=== PATIENT | female | born 1945 | race Caucasian/White ===

== ENCOUNTER → 2018-07-22 | Outpatient (CLI) | payer MEDICARE, OTHER ==
[~2018-07-22] MED LIST: AMIT25TA9 PO; HYDR25TA4 PO; LVT.05T PO; OXB5T PO; PREG150C PO; TELM1TAB3 PO
--- NOTE | 2018-07-22 15:42 | Diagnostic Imaging Report ---
PROCEDURE: US Thyroid. TECHNIQUE: Multiple real-time grayscale images were obtained of the thyroid in various projections. INDICATION: Thyroid nodules and possible goiter. No prior studies available for comparison. Right lobe of the thyroid measures 3.9 x 1.5 x 1.4 cm and the left lobe measures 3.4 x 1.4 x 1.0 cm. There is a circumscribed nodule lower pole right lobe of the thyroid measuring 7 mm x 4 mm. No microcalcifications are seen. No other thyroid nodules are detected. IMPRESSION: Subcentimeter right lobe thyroid nodule. The study is otherwise unremarkable. Dictated by: Dictated on workstation # [id number]
== END ==
LOC: RAD 14:00
PROVIDERS: ATTEND Otolaryngology Otolaryngology/Facial Plastic Surgery
DX: E04.1 Nontoxic single thyroid nodule (principal)
CPT/HCPCS: 76536

== ENCOUNTER → 2018-08-08 | Outpatient (CLI) | payer MEDICARE, OTHER ==
--- NOTE | 2018-08-08 17:12 | Diagnostic Imaging Report ---
PROCEDURE: US carotid duplex, bilateral. TECHNIQUE: Multiple real-time grayscale images were obtained over the carotid arteries in various projections, bilaterally. Additional duplex Doppler and color Doppler images were also obtained. DATE: August 08, 2018. INDICATION: 72-year-old female, left ophthalmic artery emboli. COMPARISON: January 06, 2008. FINDINGS: Peak systolic velocity in the left mid common carotid artery measures 116 cm/s. Peak systolic velocity in the left external carotid artery measures 220 cm/s. Peak systolic velocity in left proximal internal carotid artery measures 107 cm/s, 110 cm/s in the mid left internal carotid artery, and 123 cm/s distally. There is patent antegrade flow in the left vertebral artery. Peak systolic velocity in the right mid common carotid artery measures 138 cm/s. Peak systolic velocity in the right external carotid artery measures 149 cm/s. Peak systolic velocity in the right proximal internal carotid artery measures 86 cm/s, 107 cm/s in the mid right internal carotid artery, and 97 cm/s distally. There is patent antegrade flow in the right vertebral artery. IMPRESSION: 1. Negative for hemodynamically significant right or left internal carotid artery stenosis. 2. Patent antegrade flow in the bilateral vertebral arteries. Parameters based on the consensus panel Giordano-Scale and Doppler ultrasound criteria published September 2003, Radiology, Volume 229. DOPPLER (peak systolic velocity M/S Right Left CCA 1.38 1.16 ICA Proximal .85 1.07 ICA Mid 1.07 1.10 ICA Distal .96 1.23 RATIO .8 1.1 ECA 1.49 2.20 VERT .85 .95 Dictated by: Dictated on workstation # [id number]
== END ==
LOC: RAD 15:45
PROVIDERS: ATTEND Internal Medicine
DX: H34.9 Unspecified retinal vascular occlusion (principal)
CPT/HCPCS: 93880

== ENCOUNTER → 2018-10-23 | Outpatient (CLI) | payer MEDICARE, OTHER ==
--- NOTE | 2018-10-23 11:49 | Diagnostic Imaging Report ---
INDICATION: COUGH. COMPARISON: 12/22/2013. FINDINGS: Frontal and lateral views of the chest demonstrate normal heart size and pulmonary vascularity. The lungs are clear. There are no signs of infiltrate, pleural effusions or pneumothoraces. The visualized osseous structures show no acute abnormalities. IMPRESSION: 1. No acute process. No signs of infiltrates, effusions or pneumothoraces. Dictated by: Dictated on workstation # [id number]
== END ==
LOC: RAD 10:37
PROVIDERS: ATTEND Internal Medicine
DX: R05 Cough (principal)
CPT/HCPCS: 71046

== ENCOUNTER → 2019-07-21 | Outpatient (CLI) | payer MEDICARE, OTHER ==
--- NOTE | 2019-07-21 13:26 | Diagnostic Imaging Report ---
PROCEDURE: US Thyroid. TECHNIQUE: Multiple real-time grayscale images were obtained of the thyroid in various projections. INDICATION: Right thyroid nodule, followup. COMPARISON: Correlation is made with prior exam from 07/22/2018. FINDINGS: Right lobe of the thyroid measures 4.0 x 1.5 x 1.7 cm and the left lobe measures 3.6 x 1.5 x 1.0 cm. Isthmus is 3 mm in thickness. Hypoechoic nodule in the lower pole of the right lobe measures 9 mm x 6 mm x 5 mm compared with 7 mm x 4 mm x 7 mm on prior. Slight differences in measurements appear to be owing to slight differences in measurement technique. No microcalcifications are seen. No new masses are identified. IMPRESSION: Overall stable subcentimeter right lobe thyroid nodule when compared with examination one year earlier. Dictated by: Dictated on workstation # [id number]
== END ==
LOC: RAD 12:30
PROVIDERS: ATTEND Otolaryngology Otolaryngology/Facial Plastic Surgery
DX: E04.2 Nontoxic multinodular goiter (principal)
CPT/HCPCS: 76536

== ENCOUNTER → 2020-08-19 | Outpatient (CLI) | payer MEDICARE, OTHER ==
--- NOTE | 2020-08-19 11:08 | Diagnostic Imaging Report ---
PROCEDURE: US Thyroid. TECHNIQUE: Multiple real-time grayscale images were obtained of the thyroid in various projections. INDICATION: Thyroid nodule Prior thyroid ultrasound exam of 07/21/2019 noted a 9 x 6 x 5 mm hypoechoic nodule in the inferior pole of the right lobe of the thyroid. That finding is again evident in this study and now measures 10 x 4 x 4 mm. I would classify this as a TI-RADS 3 nodule. The overall appearance of the thyroid gland has not changed significantly otherwise. No new abnormality has developed. The thyroid gland is not enlarged with the right lobe measuring 4.1 x 1.6 x 1.4 cm, the left lobe estimated to be 4.6 x 1.5 x 1.1 cm (normal size 4-5 x 2 x 2 7 mm). IMPRESSION: 1. The small isoechoic nodule in the right lobe of thyroid seen previously is again evident and essentially no different. Most likely this is a benign process. 2. The overall appearance of the thyroid gland is otherwise stable. Dictated by: Dictated on workstation # [id number]
== END ==
LOC: RAD 10:00
PROVIDERS: ATTEND Otolaryngology Otolaryngology/Facial Plastic Surgery
DX: E04.1 Nontoxic single thyroid nodule (principal)
CPT/HCPCS: 76536

== ENCOUNTER → 2022-03-20 | Outpatient (CLI) | payer MEDICARE, OTHER ==
--- NOTE | 2022-03-20 12:33 | Diagnostic Imaging Report ---
PROCEDURE: US Thyroid. TECHNIQUE: Multiple real-time grayscale images were obtained of the thyroid in various projections. INDICATION: Follow-up right thyroid nodule. Correlation is made with prior ultrasound from 08/19/2020. Right lobe thyroid measures 4.2 x 1.6 x 1.6 cm, left lobe measures 3.8 x 1.6 x 1.0 cm. Isthmus is 2 mm in thickness. Both lobes are fairly homogeneous in echotexture. Hypoechoic nodule right lobe of thyroid measures 5 mm x 4 mm x 4 mm. This appears similar to prior exam. Prior measurement was 10 mm x 4 mm x 4 mm however there appears to be a difference in measurement technique. No new thyroid nodules are detected. IMPRESSION: Stable right lobe thyroid nodule when compared with prior examination from 08/19/2020. Dictated by: Dictated on workstation # [id number]
== END ==
LOC: RAD 10:09
PROVIDERS: ATTEND Otolaryngology Otolaryngology/Facial Plastic Surgery
DX: E04.1 Nontoxic single thyroid nodule (principal)
CPT/HCPCS: 76536

== ENCOUNTER 2022-05-29 13:12 | Outpatient (RCR) | payer MEDICARE, OTHER | END 2022-06-03 | disposition home or self-care (01) | LOC: CR3 13:12 | PROVIDERS: ATTEND Internal Medicine | DX: Z29.8 Encounter for other specified prophylactic measures (principal) ==

== ENCOUNTER 2022-06-08 08:47 | Outpatient (CLI) | payer MEDICARE, OTHER ==
[2022-06-08 09:05] VITALS: BP 149/77
[2022-06-08] MEDS ORDERED: EPINEPHrine INJECTION 1 MG/ML AMP IM PRN (09:15)
[2022-06-08] MEDS ORDERED: diphenhydrAMINE 50 MG/ML INJ (BENADRYL) IV PRN (09:15)
[2022-06-08] MEDS ORDERED: ONDANSETRON 4 MG/2 ML (SDV) Z0FRAN IV PRN (09:15)
[2022-06-08] MEDS ORDERED: ACETAMINOPHEN 500 MG TAB (TYLENOL) PO PRN (09:15)
[2022-06-08] MEDS ORDERED: BEBTELOVIMAB 175 MG/2 ML VIAL IV ONE (09:15)
== END 2022-06-08 09:31 | disposition home or self-care (01) ==
LOC: INFUSION 08:47
PROVIDERS: ATTEND Nurse Practitioner Family
DX: U07.1 COVID-19 (principal)

== ENCOUNTER 2022-06-11 14:35 | Inpatient (IN) | payer MEDICARE, OTHER ==
[~2022-06-11] VITALS: Ht 165 cm; Wt 90.7 kg
--- NOTE | 2022-06-11 15:02 | ED Cough/URI ---
General Chief Complaint: COVID19 Suspect/Confirmed Stated Complaint: WEAKNESS Nursing Triage Note: PT PRESENTS TO ED VIA EMS FROM HOME WITH COMPLAINTS OF FATIGUE AND GENERALIZED WEAKNESS WORSE SINCE YESTERDAY EVENING. PT STATES SHE WAS DIAGNOSED WITH COVID ON 06/03. PT DENIES CP, COUGH, OR SOA. Source: patient Exam Limitations: no limitations History of Present Illness Date Seen by Provider: Jun 11, 2022 Time Seen by Provider: 14:59 Initial Comments Patient is a 76-year-old female who presents the ED for generalized weakness and fatigue. Was diagnosed with COVID on May 28. She took paxlovid for 5 days and was placed on antibiotic and finished a few days ago. She had flulike symptoms with a cough. Coughing has improved. She states she has continuously felt weak. Was in the shower today setting when she "passed out" while sitting. Her took her to the bed and called EMS. She states she feels dehydrated. She reports dry mouth. Checked her throat a few days ago noted pus pockets. Denies of any current chest pain, abdominal pain, headache, visual changes. Denies history of coronary artery disease, COPD or asthma. Allergies and Home Medications Allergies Coded Allergies: No Known Drug Allergies (Unverified , 12/26/13) Patient Home Medication List Home Medication List Reviewed: Yes Amitriptyline Hcl (Amitriptyline Hcl) 25 Mg Tablet, 1 EACH PO HS, (Reported) Entered as Reported by: ALLYSON AGUIRRE on 12/26/13901 Hctz/Telmisartan (Micardis Hct 80-12.5 Mg Tablet) 1 Each Tablet, 1 EACH PO DAILY, (Reported) Entered as Reported by: ALLYSON AGUIRRE on 12/26/13901 Hydrochlorothiazide (Hydrochlorothiazide) 25 Mg Tablet, 25 MG PO DAILY, (Reported) Entered as Reported by: ALLYSON AGUIRRE on 12/26/13901 Levothyroxine Sodium (Levothyroxine 50 Mcg Tab) 50 Mcg Tablet, 1 EACH PO DAILY, (Reported) Entered as Reported by: ALLYSON AGUIRRE on 12/26/13901 Oxybutynin Chloride (Ditropan) 5 Mg Tab, 10 MG PO DAILY, (Reported) Entered as Reported by: ALLYSON AGUIRRE on 12/26/13901 Pregabalin (Lyrica) 150 Mg Capsule, 150 MG PO BID, (Reported) Entered as Reported by: ALLYSON AGUIRRE on 12/26/13 0902 Review of Systems Review of Systems Constitutional: No chills, No diaphoresis; malaise, weakness EENTM: No blurred vision, No double vision Respiratory: No cough, No short of breath Cardiovascular: No chest pain Gastrointestinal: No abdominal pain, No diarrhea, No nausea, No vomiting Genitourinary: No decreased output, No discharge Musculoskeletal: No back pain, No joint pain Skin: No change in color, No change in hair/nails All Other Systems Reviewed Negative Unless Noted: Yes Past Ubjgmao-Gwpett-Zwfiqg Hx Patient Social History Tobacco Use?: No Substance use?: No Alcohol Use?: Yes Alcohol Frequency: Once in a while Pt feels they are or have been: No Immunizations Up To Date First/Initial COVID19 Vaccinat: yes Second COVID19 Vaccination Sohail: yes COVID19 Vaccine Systems Software Specialist: moderna Past Medical History Surgery/Hospitalization HX: pmh: htn, osteo arthritis, fibro, high chol. Physical Exam Vital Signs - First Documented 06/11/22 14:35 Temp 36.9 Pulse 85 Resp 20 B/P (MAP) 150/64 (92) Pulse Ox 94 Capillary Refill : Less Than 3 Seconds Height: 5'4.00" Weight: 205lbs. oz. 92.169174mm; 33.00 BMI Method: General Appearance: WD/WN Eyes: Bilateral Eye Normal Inspection, Bilateral Eye PERRL, Bilateral Eye EOMI HEENT: PERRL/EOMI, normal ENT inspection, TMs normal, pharynx normal, other (Dry mouth) Neck: non-tender, full range of motion, supple Respiratory: chest non-tender, lungs clear, normal breath sounds, no respiratory distress Cardiovascular: regular rate, rhythm, no edema, no gallop, no JVD Gastrointestinal: normal bowel sounds, non tender, soft, no organomegaly Extremities: normal range of motion, non-tender, normal inspection Neurologic/Psychiatric: child care center assistant director II-XII nml as tested, no motor/sensory deficits, alert, oriented x 3 Skin: normal color, warm/dry Progress/Results/Core Measures Suspected Sepsis SIRS Temperature: Pulse: 85 Respiratory Rate: 20 Laboratory Tests 06/11/22 14:43: White Blood Count 21.5H Blood Pressure 150 /64 Mean: 92 Laboratory Tests 06/11/22 14:43: Creatinine 0.96, INR Comment 0.9, Platelet Count 418H, Total Bilirubin 0.7 Results/Orders Lab Results Laboratory Tests Test 06/11/22 14:43 06/11/22 16:34 Range/Units White Blood Count 21.5 H 4.3-11.0 10^3/uL Red Blood Count 4.65 3.80-5.11 10^6/uL Hemoglobin 13.4 11.5-16.0 g/dL Hematocrit 39 35-52 % Mean Corpuscular Volume 83 80-99 fL Mean Corpuscular Hemoglobin 29 25-34 pg Mean Corpuscular Hemoglobin Concent 35 32-36 g/dL Red Cell Distribution Width 13.5 10.0-14.5 % Platelet Count 418 H 130-400 10^3/uL Mean Platelet Volume 9.3 9.0-12.2 fL Immature Granulocyte % (Auto) 2 % Neutrophils (%) (Auto) 75 42-75 % Lymphocytes (%) (Auto) 16 12-44 % Monocytes (%) (Auto) 7 0-12 % Eosinophils (%) (Auto) 1 0-10 % Basophils (%) (Auto) 0 0-10 % Neutrophils # (Auto) 16.0 H 1.8-7.8 X 10^3 Lymphocytes # (Auto) 3.4 1.0-4.0 X 10^3 Monocytes # (Auto) 1.5 H 0.0-1.0 X 10^3 Eosinophils # (Auto) 0.1 0.0-0.3 10^3/uL Basophils # (Auto) 0.0 0.0-0.1 10^3/uL Immature Granulocyte # (Auto) 0.5 H 0.0-0.1 10^3/uL Neutrophils % (Manual) 75 % Lymphocytes % (Manual) 16 % Monocytes % (Manual) 6 % Eosinophils % (Manual) 1 % Blood Morphology Comment NORMAL Prothrombin Time 13.0 12.2-14.7 SEC INR Comment 0.9 0.8-1.4 Activated Partial Thromboplast Time 23 L 24-35 SEC Sodium Level 124 *L 135-145 MMOL/L Potassium Level 2.9 L 3.6-5.0 MMOL/L Chloride Level 85 L 98-107 MMOL/L Carbon Dioxide Level 26 21-32 MMOL/L Anion Gap 13 5-14 MMOL/L Blood Urea Nitrogen 20 H 7-18 MG/DL Creatinine 0.96 0.60-1.30 MG/DL Estimat Glomerular Filtration Rate 61 BUN/Creatinine Ratio 21 Glucose Level 119 H 70-105 MG/DL Calcium Level 8.5 8.5-10.1 MG/DL Corrected Calcium 8.7 8.5-10.1 MG/DL Magnesium Level 2.2 1.6-2.4 MG/DL Total Bilirubin 0.7 0.1-1.0 MG/DL Aspartate Amino Transf (AST/SGOT) 35 H 5-34 U/L Alanine Aminotransferase (ALT/SGPT) 88 H 0-55 U/L Alkaline Phosphatase 48 40-136 U/L Troponin I < 0.028 <0.028 NG/ML C-Reactive Protein High Sensitivity 2.05 H 0.00-0.50 MG/DL Total Protein 5.8 L 6.4-8.2 GM/DL Albumin 3.8 3.2-4.5 GM/DL Lipase 76 8-78 U/L Urine Color YELLOW Urine Clarity SL CLOUDY Urine pH 7.0 5-9 Urine Specific [place] <=1.005 1.016-1.022 Urine Protein NEGATIVE NEGATIVE Urine Glucose (UA) NEGATIVE NEGATIVE Urine Ketones NEGATIVE NEGATIVE Urine Nitrite NEGATIVE NEGATIVE Urine Bilirubin NEGATIVE NEGATIVE Urine Urobilinogen 0.2 < = 1.0 MG/DL Urine Leukocyte Esterase TRACE H NEGATIVE Urine RBC (Auto) NEGATIVE NEGATIVE Urine RBC NONE /HPF Urine WBC 0-2 /HPF Urine Squamous Epithelial Cells 2-5 /HPF Urine Crystals NONE /LPF Urine Bacteria TRACE /HPF Urine Casts NONE /LPF Urine Mucus NEGATIVE /LPF Urine Culture Indicated NO My Orders Orders - CARLOS HEWITT A PA Cbc With Automated Diff (06/11/22 15:03) Comprehensive Metabolic Panel (06/11/22 15:03) Lipase (06/11/22 15:03) Troponin I [place] (06/11/22 15:03) Chest 1 View, Ap/Pa Only (06/11/22 15:03) Ct Head Wo (06/11/22 15:03) Magnesium (06/11/22 15:03) Partial Thromboplastin Time (06/11/22 15:03) Protime With Inr (06/11/22 15:03) Hs C Reactive Protein (06/11/22 15:03) Urinalysis (06/11/22 15:03) Manual Differential (06/11/22 14:43) Ekg Tracing (06/11/22 16:50) Ed Admission (Communication) (06/11/22 17:12) Vital Signs/I&O 06/11/22 14:35 Temp 36.9 Pulse 85 Resp 20 B/P (MAP) 150/64 (92) Pulse Ox 94 Capillary Refill : Less Than 3 Seconds Blood Pressure Mean: 92 Departure Communication (PCP) Patient diagnosed with COVID on the . She finished paxlovid and antibiotic. She initially had body aches fatigue weakness with cough. Cough has improved. She has had increased weakness over the past few days. Lives at home with . Attempted to get her in the shower put her on a chair when she had a syncopal episode. She believes she lost consciousness. She is on a blood thinners. CT scan of the head unremarkable. On arrival neuro exam unremarkable. No focal neural deficits. EKG showed normal sinus rhythm. Cardiac work-up unremarkable. Chest ray was negative for pneumonia. Patient lab work showed hyponatremia, hypochloremia and hypokalemia. She was given a liter of fluid by EMS. No acute kidney injury. Elevated liver enzymes. White blood count of 21,000. She has no abdominal tenderness. Denies any cough. Urinalysis without evidence of infection. Patient elevated white blood count likely secondary to dehydration. She is unclear if she has been taking steroids. No source of infection however she just recently was diagnosed with COVID. She has past the isolation period. Patient states she is not strong enough to get up and walk. She has been able to ambulate only for short duration. Has been having difficulty taking care of patient over the past few days especially today. Patient will be admitted for IV fluids, PT OT. Discussed patient with Dr. Shahid who accepts patient. Impression Primary Impression: Dehydration Disposition: ADMITTED INPATIENT Condition: Stable Admissions Decision to Admit Reason: Admit from ER (General) Decision to Admit/Date: Jun 11, 2022 Time/Decision to Admit Time: 17:12 Departure-Patient Inst. Referrals: SHARYN CHAIDEZ MD (PCP/Family) Primary Care Physician CARLOS HEWITT Jun 11, 2022 15:02
[2022-06-11 15:14] LABS: INR 0.9 (0.8-1.4)
[2022-06-11 15:18] LABS: ALBUMIN 3.8 GM/DL (3.2-4.5); CHLORIDE 85 MMOL/L (98-107); POTASSIUM 2.9 MMOL/L (3.6-5.0)
[2022-06-11 15:19] LABS: CALCIUM 8.5 MG/DL (8.5-10.1)
[2022-06-11 15:20] LABS: GLUCOSE 119 MG/DL (70-105); TOTAL PROTEIN 5.8 GM/DL (6.4-8.2)
[2022-06-11 15:21] LABS: CARBON DIOXIDE 26 MMOL/L (21-32)
[2022-06-11 15:22] LABS: BILIRUBIN,TOTAL 0.7 MG/DL (0.1-1.0)
[2022-06-11 15:24] LABS: ALKALINE PHOSPHATASE 48 U/L (40-136); CREATININE SERUM 0.96 MG/DL (0.60-1.30); GFR ESTIMATED 61
[2022-06-11 15:25] LABS: BASOPHILS % (AUTO) 0 % (0-10); BUN/CREATININE RATIO 21; EOSINOPHILS # (AUTO) 0.1 10^3/uL (0.0-0.3); EOSINOPHILS % (AUTO) 1 % (0-10); HEMATOCRIT 39 % (35-52); HEMOGLOBIN 13.4 g/dL (11.5-16.0); LYMPHOCYTES # (AUTO) 3.4 X 10^3 (1.0-4.0); LYMPHOCYTES % (AUTO) 16 % (12-44); MEAN CORPUSCULAR HEMOGLOBIN 29 pg (25-34); MEAN CORPUSCULAR HGB CONC 35 g/dL (32-36); MEAN CORPUSCULAR VOLUME 83 fL (80-99); MEAN PLATELET VOLUME 9.3 fL (9.0-12.2); MONOCYTES # (AUTO) 1.5 X 10^3 (0.0-1.0); MONOCYTES % (AUTO) 7 % (0-12); NEUTROPHILS % (AUTO) 75 % (42-75); PLATELET COUNT 418 10^3/uL (130-400); WHITE BLOOD COUNT 21.5 10^3/uL (4.3-11.0)
[2022-06-11 15:27] LABS: ALANINE AMINOTRANSFERASE 88 U/L (0-55); MAGNESIUM 2.2 MG/DL (1.6-2.4)
[2022-06-11 15:28] LABS: LIPASE 76 U/L (8-78)
--- NOTE | 2022-06-11 15:29 | Diagnostic Imaging Report ---
INDICATION: Cough. EXAMINATION: Single view chest. COMPARISON: Prior examination from 12/22/2013. FINDINGS: The heart size, mediastinal configuration, and pulmonary vascularity are within normal limits. There is no pleural effusion, pneumothorax, or pneumonia. The osseous structures are unremarkable. IMPRESSION: No acute cardiopulmonary abnormality. Dictated by: Dictated on workstation # [id number]
[2022-06-11 15:38] LABS: SODIUM 124 MMOL/L (135-145)
--- NOTE | 2022-06-11 15:40 | Diagnostic Imaging Report ---
PROCEDURE: CT head without contrast. TECHNIQUE: Multiple contiguous axial images were obtained through the brain without the use of intravenous contrast. Auto Exposure Controls were utilized during the CT exam to meet ALARA standards for radiation dose reduction. INDICATION: Hip pain after fall COMPARISON: None available. FINDINGS: No hyperdense hemorrhage or space-occupying mass. No hydrocephalus or midline shift. The basilar cisterns are normal. Giordano-white matter differentiation is well preserved. Global atrophy without isolated lobar predominance. The mastoid air cells are clear. Paranasal sinuses are normal. No focal osseous abnormality of the calvarium. IMPRESSION: 1. No acute intracranial process. Dictated by: Dictated on workstation # [id number]
[2022-06-11 16:14] LABS: EOSINOPHILS % (MANUAL) 1 %; LYMPHOCYTES % (MANUAL) 16 %; MONOCYTES % (MANUAL) 6 %; NEUTROPHILS % (MANUAL) 75 %; RBC MORPH NORMAL
[2022-06-11 16:43] LABS: BILIRUBIN,URINE NEGATIVE (NEGATIVE); CLARITY,URINE SL CLOUDY; COLOR,URINE YELLOW; GLUCOSE, URINE (UA) NEGATIVE (NEGATIVE); KETONES,URINE NEGATIVE (NEGATIVE); LEUKOCYTE ESTERASE ,URINE TRACE (NEGATIVE); NITRITE,URINE NEGATIVE (NEGATIVE); PROTEIN,URINE NEGATIVE (NEGATIVE)
[2022-06-11 16:59] LABS: BACTERIA,URINE TRACE /HPF; WBC,URINE 0-2 /HPF
[2022-06-11] MEDS ORDERED: LACTULOSE SYRUP 10GM/15ML (ENULOSE) 30ML UDC PO PRN (18:30)
[2022-06-11] MEDS ORDERED: BISACODYL 10 MG SUPP (DULCOLAX) PR PRN (18:30)
[2022-06-11] MEDS ORDERED: ANTACID SUSP 30 ML UDC (MYLANTA) PO PRN (18:30)
[2022-06-11] MEDS ORDERED: polyethylene glycoL POWDER 17 GM (MIRALAX) PACK PO PRN (18:30)
[2022-06-11] MEDS ORDERED: MILK OF MAGNESIA 400 MG/5 ML 30 ML UDC PO PRN (18:30)
[2022-06-11] MEDS ORDERED: ONDANSETRON 4 MG/2 ML (SDV) Z0FRAN IV PRN (18:30)
[2022-06-11] MEDS ORDERED: CALCIUM CARBONATE 500 MG (TUMS) TAB.CHEW PO PRN (18:30)
[2022-06-11] MEDS ORDERED: NS IV 500 ML 500 ML IV PRN (18:30)
[2022-06-11] MEDS ORDERED: MELATONIN 3 MG TABLET PO PRN (18:30)
[2022-06-11] MEDS ORDERED: ONDANSETRON 4 MG (ZOFRAN) ORAL DISSOLVE TAB PO PRN (18:30)
[2022-06-11] MEDS ORDERED: ACETAMINOPHEN 325 MG TABLET PO PRN (18:30)
[2022-06-11] MEDS ORDERED: NS IV 1000 ML 1,000 ML ONE (19:55)
[2022-06-11 20:24] VITALS: BP 136/71
[2022-06-11] MEDS: OXYBUTYNIN (DITROPAN) 5 MG TAB PO SCH (21:00)
[2022-06-11] MEDS: SENNOSIDES 8.6 MG (SENOKOT) TAB PO SCH (21:01)
[2022-06-11] MEDS: ENOXAPARIN 40 MG/0.4 ML (LOVENOX) SYR SC SCH (21:01)
[2022-06-11] MEDS: AMITRIPTYLINE 25 MG (ELAVIL) TAB PO SCH (21:01)
[2022-06-11] MEDS: SERTRALINE 50 MG (ZOLOFT) TABLET PO SCH (21:01)
[2022-06-11] MEDS: DOCUSATE SODIUM 100 MG (COLACE) CAP PO SCH (21:01)
[2022-06-11] MEDS: NS IV 1000 ML 1,000 ML IV SCH (21:02)
[2022-06-11 21:14] VITALS: BP 136/71
[2022-06-11] MEDS ORDERED: RT-ALBUTEROL SULF 2.5 MG/3 ML PRE-MIX VIAL INH PRN (21:30)
[2022-06-11 23:07] VITALS: BP 126/62
[2022-06-12 03:27] VITALS: BP 117/58
[2022-06-12] MEDS: NS IV 1000 ML 1,000 ML IV SCH ×3 (04:30→17:03)
[2022-06-12] MEDS: POTASSIUM CL 10MEQ/50ML IVPB 50 ML IV SCH (06:00)
[2022-06-12] MEDS: KCL 20 MEQ TAB (K-DUR) PO SCH ×4 (06:00→10:39)
[2022-06-12] MEDS: MAGNESIUM 1 GM/100 ML IVPB 100 ML IV SCH (06:00)
[2022-06-12 06:10] LABS: HEMATOCRIT 38 % (35-52); HEMOGLOBIN 12.9 g/dL (11.5-16.0); MEAN CORPUSCULAR HEMOGLOBIN 29 pg (25-34); MEAN CORPUSCULAR HGB CONC 34 g/dL (32-36); MEAN CORPUSCULAR VOLUME 84 fL (80-99); PLATELET COUNT 375 10^3/uL (130-400); WHITE BLOOD COUNT 10.9 10^3/uL (4.3-11.0)
[2022-06-12] MEDS: LEVOTHYROXINE 50 MCG (LEVOTHROID) TAB PO SCH (06:18)
[2022-06-12 06:20] LABS: POTASSIUM 2.9 MMOL/L (3.6-5.0)
[2022-06-12 06:21] LABS: CALCIUM 8.3 MG/DL (8.5-10.1)
[2022-06-12 06:25] LABS: CREATININE SERUM 0.79 MG/DL (0.60-1.30)
[2022-06-12 06:27] LABS: MAGNESIUM 2.3 MG/DL (1.6-2.4)
[2022-06-12 08:00] VITALS: BP 146/81
[2022-06-12] MEDS: SENNOSIDES 8.6 MG (SENOKOT) TAB PO SCH ×2 (08:20→20:04)
[2022-06-12] MEDS: OXYBUTYNIN (DITROPAN) 5 MG TAB PO SCH ×2 (08:20→20:03)
[2022-06-12] MEDS: DOCUSATE SODIUM 100 MG (COLACE) CAP PO SCH ×2 (08:20→20:03)
[2022-06-12] MEDS ORDERED: LEVO50TA PO (10:56)
[2022-06-12] MEDS ORDERED: ESTR10TA4 VG (10:56)
[2022-06-12] MEDS ORDERED: AMIT25TA9 PO (10:56)
[2022-06-12] MEDS ORDERED: SERT-413 PO (10:56)
[2022-06-12] MEDS ORDERED: PRAV20TA3 PO (10:56)
[2022-06-12] MEDS ORDERED: SERT-414 PO (10:56)
[2022-06-12] MEDS ORDERED: TELM1TAB PO (10:56)
[2022-06-12] MEDS ORDERED: OXYB10TA29 PO (10:56)
[2022-06-12] MEDS ORDERED: CHOL-34 PO (10:58)
[2022-06-12] MEDS ORDERED: ZINC50TA11 PO (10:58)
[2022-06-12] MEDS ORDERED: ASCO-262 PO (10:58)
[2022-06-12] MEDS ORDERED: ACET-2267 PO (10:59)
[2022-06-12] MEDS ORDERED: POLY1DRO OP (11:00)
--- NOTE | 2022-06-12 11:09 | History & Physical-Hospitalist ---
History of Present Illness HPI/Chief Complaint Patient is 76-year-old female with history of hypothyroidism, hypertension, hyperlipidemia who presented to the emergency department due to weakness. She states she had COVID at the end of last month and attempted to receive monoclonal antibody but was too late. She instead took Paxlovid with azithromycin and dexamethasone at home. She was feeling better but then over the past couple days has become more weak. She had to have her 's assistance with showering. Yesterday she did not feel as if she could get out of bed and so had her summon EMS. In the emergency room she was found to be hyponatremic and had persistent weakness and so was admitted for further evaluation. This morning she reports feeling better and thinks her appetite is improving. She is hopeful to work with physical therapy soon. Source: patient Date Seen 06/12/22 Time Seen by a Provider: 11:01 Attending Physician Sharyn Perez MD PCP Admitting Physician: Jimena Shahid MD Attending Physician: Lauren Ortiz MD Referring Physician Date of Admission Jun 11, 2022 at 17:16 Home Medications & Allergies Home Medications Reviewed patient Home Medication Reconciliation performed by pharmacy medication reconciliations technician test systems and/or nursing. Patients Allergies have been reviewed. Allergies Allergies Coded Allergies No Known Drug Allergies (Unverified12/26/13) Past Bltcybk-Keqvrt-Tovpoo Hx Patient Social History Marrital Status: Employed/Student: retired Tobacco Use?: No Smoking Status: Former Smoker Use of E-Cig and/or Vaping dev: No Substance use?: No Alcohol Use?: Yes Alcohol type: Wine Alcohol Frequency: Once in a while Pt feels they are or have been: No Immunizations Up To Date Date of Influenza Vaccine: Aug 25, 2013 First/Initial COVID19 Vaccinat: yes Second COVID19 Vaccination Sohail: yes Current Status Advance Directives: No Communicates: Verbally Primary Language: Hungarian Preferred Spoken Language: Hungarian Is interpretation needed?: No Past Medical History High Cholesterol, Hypertension Arthritis, Fibromyalgia Hypothyroidsim Family Medical History Reviewed Nursing Family Hx No Pertinent Family Hx Review of Systems Constitutional: No chills, No fever; malaise, weakness EENTM: no symptoms reported Respiratory: No cough, No short of breath Cardiovascular: no symptoms reported Gastrointestinal: loss of appetite; No nausea, No vomiting Genitourinary: no symptoms reported Musculoskeletal: no symptoms reported Skin: no symptoms reported Psychiatric/Neurological: No Symptoms Reported Physical Exam Physical Exam Vital Signs Vital Signs - First Documented 06/11/22 06/11/22 06/11/22 06/12/22 14:35 18:45 21:14 07:22 Temp 36.9 Pulse 85 Resp 20 B/P (MAP) 150/64 (92) Pulse Ox 94 O2 Delivery Room Air O2 Flow Rate 0.00 FiO2 97 Capillary Refill : Less Than 3 Seconds Height, Weight, BMI Height: 5'4.00" Weight: 205lbs. oz. 92.868531nq; 33.31 BMI Method: General Appearance: No Apparent Distress, WD/WN, Obese HEENT: PERRL/EOMI, Moist Mucous Membranes; No Scleral Icterus (L), No Scleral Icterus (R) Neck: Normal Inspection, Supple Respiratory: Lungs Clear, No Accessory Muscle Use, No Respiratory Distress Cardiovascular: Regular Rate, Rhythm, No JVD, No Murmur Gastrointestinal: Normal Bowel Sounds, Non Tender, Soft Extremity: No Calf Tenderness, No Pedal Edema Neurologic/Psychiatric: Alert, Oriented x3, Normal Mood/Affect; No Aphasia, No Facial Droop Skin: Normal Color, Warm/Dry Results Results/Procedures Labs Laboratory Tests 06/11/22 14:43 06/12/22 05:37 Patient resulted labs reviewed. Imaging: Reviewed Imaging Report Imaging [facility] [place], [place] NAME: KEV PHAN [facility] REC#: [id number] PT STATUS: REG ER : 1945 PHYSICIAN: CARLOS HEWITT ADMIT DATE: 06/11/22/ER Signed Date of Exam:06/11/22 CHEST 1 VIEW, AP/PA ONLY INDICATION: Cough. EXAMINATION: Single view chest. COMPARISON: Prior examination from 12/22/2013. FINDINGS: The heart size, mediastinal configuration, and pulmonary vascularity are within normal limits. There is no pleural effusion, pneumothorax, or pneumonia. The osseous structures are unremarkable. IMPRESSION: No acute cardiopulmonary abnormality. Dictated by: Dictated on workstation # [id number] Dict: 06/11/22 1523 Trans: 06/11/22 1532 [facility] [id number] Interpreted by: MARCO A DUTTA MD Electronically signed by: MARCO A DUTTA MD 06/11/22 1532 [facility] [place] NAME: KEV PHAN [facility] REC#: [id number] PT STATUS: REG ER : 1945 PHYSICIAN: CARLOS HEWITT ADMIT DATE: 06/11/22/ER Signed Date of Exam:06/11/22 CT HEAD WO PROCEDURE: CT head without contrast. TECHNIQUE: Multiple contiguous axial images were obtained through the brain without the use of intravenous contrast. Auto Exposure Controls were utilized during the CT exam to meet ALARA standards for radiation dose reduction. INDICATION: Hip pain after fall COMPARISON: None available. FINDINGS: No hyperdense hemorrhage or space-occupying mass. No hydrocephalus or midline shift. The basilar cisterns are normal. Giordano-white matter differentiation is well preserved. Global atrophy without isolated lobar predominance. The mastoid air cells are clear. Paranasal sinuses are normal. No focal osseous abnormality of the calvarium. IMPRESSION: 1. No acute intracranial process. Dictated by: Dictated on workstation # [id number] Dict: 06/11/22 1536 Trans: 06/11/22 1538 [facility] [id number] Interpreted by: AMAN DO MD Electronically signed by: AMAN DO MD 06/11/22 1538 Assessment/Plan Admission Diagnosis Hyponatremia Admission Status: Inpatient Order (span 2 midnights) Reason for Inpatient Admission: see below Assessment and Plan Hyponatremia Hypokalemia Likely due to poor oral intake Continue IVF Replace K as needed Check in AM Weakness Recent COVID19 Fibromylagia PT/OT IRF eval Now out of isolation (tested positive on 05/30) HTN HLD Continue home meds as able DVT ppx: Lovenox Diagnosis/Problems Diagnosis/Problems (1) Dehydration Status: Acute (2) Hyperlipidemia Status: Chronic Qualifiers: Hyperlipidemia type: mixed hyperlipidemia Qualified Codes: E78.2 - Mixed hyperlipidemia (3) Hypertension Status: Chronic Qualifiers: Hypertension type: primary hypertension Qualified Codes: I10 - Essential (primary) hypertension (4) Osteoarthritis Status: Chronic Qualifiers: Osteoarthritis location: multiple joints Osteoarthritis type: primary Qualified Codes: M15.9 - Polyosteoarthritis, unspecified (5) Fibromyalgia Status: Chronic (6) Obesity Status: Chronic Qualifiers: Obesity type: due to excess calories Obesity classification: adult class 1 (BMI 30 - 34.9) Serious obesity comorbidity presence: without serious comorbidity Body mass index: BMI 33.0-33.9 Qualified Codes: E66.09 - Other obesity due to excess calories; Z68.33 - Body mass index [BMI] 33.0-33.9, adult (7) COVID-19 Status: Acute (8) Hyponatremia Status: Acute (9) Hypokalemia Status: Acute (10) Leukocytosis Status: Resolved Resolution Date/Time: 06/12/22 @ 11:19 (11) Thrombocytosis Status: Resolved Resolution Date/Time: 06/12/22 @ 11:19 (12) Elevated LFTs Status: Acute Copy Copies To 1: SHARYN PEREZ MD, KATELYN M MD Jun 12, 2022 11:09
--- NOTE | 2022-06-12 11:45 | Physical Therapy Evaluation ---
PT Evaluation-General Medical Diagnosis Admission Date Jun 11, 2022 at 17:16 Medical Diagnosis: generalized weakness Onset Date: Jun 11, 2022 Therapy Diagnosis Therapy Diagnosis: debility/weakness Height/Weight Height (Feet): 5 Height (Inches): 4.00 Weight (Pounds): 205 Precautions Precautions/Isolations: Fall Prevention, Standard Precautions Referral Physician: Kleber Reason for Referral: Evaluation/Treatment Medical History Pertinent Medical History: HTN, Hypothroidism Additional Medical History recent Covid Current History EMS secondary to fatigue and lethargy Reviewed History: Yes Social History Home: Single Level Current Living Status: Spouse Entry Into Home: Stairs With Railing PT Steps Into Home: 2 Prior Prior Level of Function SCALE: Activities may be completed with or without assistive devices. 1-Ndzifuhztc-xkwwsih completes the activity by him/herself with no assistance from a helper. 5-Set-up or Clean-up Assistance-helper sets up or cleans up; patient completes activity. [place] assists only prior to or following the activity. 4-Supervision or Touching Assistance-helper provides verbal cues and/or t ouching/steadying and/or contact guard assistance as patient completes activity. Assistance may be provided throughout the activity or intermittently. 3-Partial/Moderate Assistance-helper does LESS THAN HALF the effort. [place] lifts, holds or supports trunk or limbs, but provides less than half the effort. 2-Substantial/Maximal Assistance-helper does MORE THAN HALF the effort. [place] lifts or holds trunk or limbs and provides more than half the effort. 7-Qlxzrinhf-epmuzf does ALL the effort. Patient does none of the effort to complete the activity. Or, the assistance of 2 or more helpers is required for the patient to complete the activity. If activity was not attempted, code reason: 7-Patient Refused. 9-Not Applicable-not attempted and the patient did not perform the activity before the current illness, exacerbation or injury. 10-Not Attempted due to Environmental Limitations-(lack of equipment, weather restraints, etc.). 88-Not Attempted due to Medical Conditions or Safety Concerns. Bed Mobility: 6 Transfers (B,C,W/C): 6 Gait: 6 Stairs: 6 Indoor Mobility (Ambulation): Independent Stairs: Independent Prior Devices Use: None PT Evaluation-Current Subjective Patient initially declined FWW use. Agrees after attempting to ambulate with noted unsteady gait sequence. Objective Patient Orientation: Normal For Age ROM/Strength ROM Lower Extremities bilateral LE WFL Strength Lower Extremities 4-/5 grossly bilateral LE Integumentary/Posture Integumentary refer to nursing notes Bowel Incontinence: No Bladder Incontinence: Yes Posture WFL Neuromuscular (Tone, Coordination, Reflexes) grossly intact Sensory Vision: Wears Glasses Hearing: Functional Transfers Lying to Sitting/Side of Bed(Q: 6 Sit to Stand (QC): 4 Chair/Jkk-eo-Lnjvw Xfer(QC): 4 Gait Mode of Locomotion: Walk Anticipated Mode of Locomotion: Walk Walk 10 feet (QC): 4 Walk 50 ft with 2 Turns(QC): 4 Walk 150 ft (QC): 4 Distance: 250' Gait Assistive Device: FWW Comments/Gait Description initially unsteady with self correct after distance Balance Sitting Static: Normal Sitting Dynamic: Normal Standing Static: Fair Standing Dynamic: Fair Assessment/Needs 76 y.o. female, will be seen short term by skilled PT to address functional strength and mobility to improve current LOF to safely return to home at maximum LOF. Rehab Potential: Fair PT Care Home Goals Care Home Goals PT Birthing Nurse Goals Time Frame: Jun 17, 2022 Roll Left & Right (QC): 6 Sit to Lying (QC): 6 Lying-Sitting on Side/Bed(QC): 6 Sit to Stand (QC): 6 Chair/Wpk-af-Vijfx Xfer(QC): 6 Toilet Transfer (QC): 6 Walk 10 feet (QC): 6 Walk 50ft with 2 Turns (QC): 6 Walk 150 ft (QC): 6 PT Plan Problem List Problem List: Activity Tolerance Treatment/Plan Treatment Plan: Continue Plan of Care Treatment Plan: Education, Functional Activity [place], Functional Strength, Gait, Safety, Therapeutic Exercise, Transfers Treatment Duration: Jun 17, 2022 Frequency: 6 times per week Estimated Hrs Per Day: .25 hour per day Patient and/or Family Agrees t: Yes Time/GCodes Time In: 1058 Time Out: 1111 Total Billed Treatment Time: 13 Total Billed Treatment 1 visit EVModC 13 min MARIA VICTORIA IRELAND PT Jun 12, 2022 11:45
[2022-06-12 11:56] VITALS: BP 132/58
--- NOTE | 2022-06-12 14:41 | Occupational Therapy Eval ---
OT Evaluation-General/PLF Medical Diagnosis Admission Date Jun 11, 2022 at 17:16 Medical Diagnosis: generalized weakness Onset Date: Jun 11, 2022 Therapy Diagnosis Therapy Diagnosis: decreased ADL status and weakness Height/Weight Height (Feet): 5 Height (Inches): 4.00 Weight (Pounds): 205 Precautions Precautions/Isolations: Fall Prevention, Standard Precautions Referral Physician: Kleber Referral Reason: Evaluation/Treatment Medical History Pertinent Medical History: HTN, Hypothroidism Additional Medical History HTN, fibromyalgia, and HLD Current History EMS from home with c/o fatigue, general weakness. Dx covid Social History Home: Single Level Current Living Status: Spouse Entry Into Home: Stairs With Railing Steps Into Home: 2 ADL-Prior Level of Function SCALE: Activities may be completed with or without assistive devices. 2-Lleqkkielf-jhnrern completes the activity by him/herself with no assistance from a helper. 5-Set-up or Clean-up Assistance-helper sets up or cleans up; patient completes activity. [place] assists only prior to or following the activity. 4-Supervision or Touching Assistance-helper provides verbal cues and/or touching/steadying and/or contact guard assistance as patient completes activity. Assistance may be provided throughout the activity or intermittently. 3-Partial/Moderate Assistance-helper does LESS THAN HALF the effort. [place] lifts, holds or supports trunk or limbs, but provides less than half the effort. 2-Substantial/Maximal Assistance-helper does MORE THAN HALF the effort. [place] lifts or holds trunk or limbs and provides more than half the effort. 0-Yxemzourb-yxklze does ALL the effort. Patient does none of the effort to complete the activity. Or, the assistance of 2 or more helpers is required for the patient to complete the activity. If activity was not attempted, code reason: 7-Patient Refused. 9-Not Applicable-not attempted and the patient did not perform the activity before the current illness, exacerbation or injury. 10-Not Attempted due to Environmental Limitations-(lack of equipment, weather restraints, etc.). 88-Not Attempted due to Medical Conditions or Safety Concerns. ADL PLOF Comments Pt reports being IND in ADLs, IADLs, and functional mobility at [facility]. She lives with her who had covid at the same time she did, and he is still recovering. She has 2 living children and 9 grandchildren, but level of support is uncertain. Self Care: Independent Functional Cognition: Independent DME/Equipment: Bath Chair, Shower Occupation: retired cook Drive Self: Yes OT Current Status Subjective Pt sitting EOB after returning from RB with nursing staff upon OT arrival, agreeable to eval/tx. Mental Status/Objective Patient Orientation: Person, Place, Situation Attachments: IV, Other-See Comments (Purewick) Current Glasses/Contacts: Yes Hearing Aids: No Dentures/Partials: Yes Hand Dominance: Right Upper Extremity ROM bilaterally WFL Upper Extremity Sensation Pt denies any BUE sensation deficits Upper Extremity Strength ~3+/5 bilaterally ADL-Treatment Eating (QC): 6 (per nursing report) On/Off Footwear (QC): 6 Toileting Hygiene (QC): 4 (SBA for standing balance per nursing staff report) Other Treatments Pt demonstrated footwear while seated EOB. She then returned to supine and provided information about PLOF and living situation and participated in BUE screen. Pt was educated on the purpose and benefit of skilled OT services, but politely declined services at this time as she believes that she is at her baseline. Pt told to have nursing staff notify OT if any new self-care concerns arise, pt verbalized understanding. Pt requested her purewick be placed back after using RB, OT educated pt on importance of getting up to the bathroom ins tead of the purewick in order to continue with activity tolerance, she verbalized understanding. . Post tx, pt left in bed with call light in place and all needs met. Education OT Patient Education: Correct positioning, Energy conservation, Exercise program, Modified ADL techniques, Progress toward Goal/Update tx plan, Purpose of tx/functional activities, Rehab process Teaching Recipient: Patient Teaching Methods: Discussion Response to Teaching: Verbalize Understanding OT And Taxi Instructor Bus Trolley Goals Custodial Goals 1=Demonstrate adherence to instructed precautions during ADL tasks. 2=Patient will verbalize/demonstrate understanding of assistive devices/modifications for ADL. 3=Patient will improve strength/tolerance for activity to enable patient to perform ADL's. OT Education/Plan Problem List/Assessment Assessment: No Skilled OT Needs ID'd Pt was educated about the purpose and benefit of skilled OT services, but she politely declined as she does not have any concerns and feels that she is at her PLOF from an ADL standpoint. Pt told to have nursing staff notify OT if any new concerns arise, pt verbalized agreement. D/c from OT at this time. Discharge Recommendations Plan/Recommendations: Discharge/Goals Met Treatment Plan/Plan of Care Patient would benefit from OT for education, treatment and training to promote independence in ADL's, mobility, safety and/or upper extremity function for ADL's. Plan of Care: ADL Retraining, Functional Mobility, Group Exercise/Act as Ind, UE Funct Exercise/Act Treatment Duration: Jun 12, 2022 Frequency: 1 time per week (eval only) Estimated Hrs Per Day: .25 hour per day Rehab Potential: Fair Time/GCodes Start Time: 14:20 Stop Time: 14:31 Total Time Billed (hr/min): 11 Billed Treatment Time 1, EVL (11') ROEL VELAZCO OT Jun 12, 2022 14:41
[2022-06-12 16:07] VITALS: BP 139/79
[2022-06-12 19:19] VITALS: BP 127/75
[2022-06-12] MEDS: SERTRALINE 50 MG (ZOLOFT) TABLET PO SCH (20:02)
[2022-06-12] MEDS: ENOXAPARIN 40 MG/0.4 ML (LOVENOX) SYR SC SCH (20:03)
[2022-06-12] MEDS: AMITRIPTYLINE 25 MG (ELAVIL) TAB PO SCH (20:03)
[2022-06-12 23:43] VITALS: BP 112/67
[2022-06-13] MEDS: NS IV 1000 ML 1,000 ML IV SCH (02:39)
[2022-06-13 04:27] VITALS: BP 117/69
[2022-06-13 06:00] LABS: HEMATOCRIT 35 % (35-52); HEMOGLOBIN 11.5 g/dL (11.5-16.0); MEAN CORPUSCULAR HEMOGLOBIN 29 pg (25-34); MEAN CORPUSCULAR HGB CONC 33 g/dL (32-36); MEAN CORPUSCULAR VOLUME 87 fL (80-99); PLATELET COUNT 328 10^3/uL (130-400); WHITE BLOOD COUNT 9.3 10^3/uL (4.3-11.0)
[2022-06-13 06:22] LABS: CALCIUM 7.8 MG/DL (8.5-10.1)
[2022-06-13 06:26] LABS: CREATININE SERUM 0.79 MG/DL (0.60-1.30)
[2022-06-13 06:29] LABS: MAGNESIUM 2.2 MG/DL (1.6-2.4)
[2022-06-13] MEDS: POTASSIUM CL 10MEQ/50ML IVPB 50 ML IV SCH (06:31)
[2022-06-13] MEDS: MAGNESIUM 1 GM/100 ML IVPB 100 ML IV SCH (06:32)
[2022-06-13] MEDS: KCL 20 MEQ TAB (K-DUR) PO SCH (06:32)
[2022-06-13] MEDS: LEVOTHYROXINE 50 MCG (LEVOTHROID) TAB PO SCH (06:34)
[2022-06-13 06:54] VITALS: BP 117/69
[2022-06-13 07:14] VITALS: BP 130/75
[2022-06-13] MEDS ORDERED: RT-ALBUTEROL/IPRATROPIUM 3 ML (DUONEB) VIAL INH SCH (08:00)
[2022-06-13] MEDS: DOCUSATE SODIUM 100 MG (COLACE) CAP PO SCH (09:07)
[2022-06-13] MEDS: OXYBUTYNIN (DITROPAN) 5 MG TAB PO SCH (09:07)
[2022-06-13] MEDS: SENNOSIDES 8.6 MG (SENOKOT) TAB PO SCH (09:08)
--- NOTE | 2022-06-13 09:20 | D/C HH Face to Face Order ---
D/C Face to Face Orders Instructions for Patient Via [facility], Patient Instructions/FollowUp: Please continue to take your medications as written. Please follow up with your primary care doctor to follow up this hospital stay. Physician to follow Patient: Dr Perez Discharge Diet for Home: No Restrictions Patient Data-Allergies,Ht & Wt Patient Allergies: Coded Allergies: No Known Drug Allergies (Unverified , 12/26/13) Height (Feet): 5 Height (Inches): 4.00 Weight (Pounds): 205 Home Health Need/Face to Face Date of Face to Face: Jun 13, 2022 Clinical Findings: Generalized weakness and fatigue I have seen Pt xroz-[id number]: Yes Discharged To: Home Diagnosis/Conditions: Dehydration, debility, recent COVID infection Patient is Homebound due to: Muscle weakness Homebound Status Due to the above stated illness, injury or surgical procedure (medical co ndition or diagnosis) and associated clinical findings, the patient is homebound because of his/her inability to leave home except with aid of a supportive device and/or person AND leaving the home requires a considerable and taxing effort or is medically contraindicated. Pt req the following assistanc: Aid of another person Home Health Nursing Orders Home Health Services Order: Nursing Services, Physical Therapy-Evaluate & Treat Therapy Orders Therapy Orders: Physical Therapy, PT to assess for OT Therapy Specific Orders: Eval assistive deivces, Teach enviro modifications/safety, Gait training, Increase strength/endurance Certify Stmt I certify that this patient is under my care and that I, a nurse practitioner or a physician; a assistant community manager working with me, had a face to face encounter that - meets the physician face to face encounter requirements with this patient as dated. ARON WHEELER MD Jun 13, 2022 09:20
--- NOTE | 2022-06-13 09:28 | Discharge Summary ---
Diagnosis/Chief Complaint Date of Admission Jun 11, 2022 at 17:16 Date of Discharge Discharge Date: Jun 13, 2022 Admission Diagnosis Hyponatremia Primary Care Oracio Perez MD Discharge Diagnosis (1) Dehydration Status: Acute (2) Hyperlipidemia Status: Chronic (3) Hypertension Status: Chronic (4) Osteoarthritis Status: Chronic (5) Fibromyalgia Status: Chronic (6) Obesity Status: Chronic (7) COVID-19 Status: Acute (8) Hyponatremia Status: Acute (9) Hypokalemia Status: Acute (10) Leukocytosis Status: Resolved (11) Thrombocytosis Status: Resolved (12) Elevated LFTs Status: Acute Discharge Summary Discharge Physical Exam Allergies: Coded Allergies: No Known Drug Allergies (Unverified , 12/26/13) Vitals & I&Os Vital Signs Date Time Temp Pulse Resp B/P (MAP) Pulse Ox O2 Delivery O2 Flow Rate FiO2 06/13/22 07:46 97 Room Air 0.00 06/13/22 07:14 36.3 74 18 130/75 (93) 06/13/22 06:54 21 Hospital Course Labs (last 24 hrs) Laboratory Tests 06/13/22 05:51: White Blood Count 9.3, Red Blood Count 4.02, Hemoglobin 11.5, Hematocrit 35, Mean Corpuscular Volume 87, Mean Corpuscular Hemoglobin 29, Mean Corpuscular He moglobin Concent 33, Red Cell Distribution Width 14.1, Platelet Count 328, Mean Platelet Volume 9.0, Sodium Level 130L, Potassium Level 4.0, Chloride Level 101, Carbon Dioxide Level 25, Anion Gap 4L, Blood Urea Nitrogen 9, Creatinine 0.79, Estimat Glomerular Filtration Rate 77, BUN/Creatinine Ratio 11, Glucose Level 130H, Calcium Level 7.8L, Magnesium Level 2.2 Patient resulted labs reviewed. Pending Labs Laboratory Tests 06/13/22 05:51: White Blood Count 9.3, Red Blood Count 4.02, Hemoglobin 11.5, Hematocrit 35, Mean Corpuscular Volume 87, Mean Corpuscular Hemoglobin 29, Mean Corpuscular Hemoglobin Concent 33, Red Cell Distribution Width 14.1, Platelet Count 328, Mean Platelet Volume 9.0, Sodium Level 130, Potassium Level 4.0, Chloride Level 101, Carbon Dioxide Level 25, Anion Gap 4, Blood Urea Nitrogen 9, Creatinine 0.79, Estimat Glomerular Filtration Rate 77, BUN/Creatinine Ratio 11, Glucose Level 130, Calcium Level 7.8, Magnesium Level 2.2 Imaging: Reviewed Imaging Report Discharge Home Medications: Active Scripts Active Reported Refresh Classic Eye Drops (Polyvinyl Alcohol/Povidone/Pf) 1.4 %-0.6 % Droperette 1 Each OP DAILY PRN Tylenol Extra Strength (Acetaminophen) 500 Mg Tablet 500 Mg PO Q8H PRN Vitamin C (Ascorbate Calcium) 500 Mg Tablet 500 Mg PO DAILY Vitamin D3 (Cholecalciferol (Vitamin D3)) 25 Mcg (1000 Unit) Tablet 25 Mcg PO DAILY Zinc (Zinc Gluconate) 50 Mg Tablet 50 Mg PO DAILY Sertraline HCl 100 Mg Tablet 100 Mg PO DAILY TAKES ALONG WITH (50MG) TAB Pravastatin Sodium 20 Mg Tablet 20 Mg PO DAILY Oxybutynin Chloride ER (Oxybutynin Chloride) 10 Mg Tab.er.24 10 Mg PO DAILY Amitriptyline HCl 25 Mg Tablet 25 Mg PO HS Synthroid (Levothyroxine Sodium) 50 Mcg Tablet 50 Mcg PO DAILY Micardis Hct 80-25 mg Tablet (Telmisartan/Hydrochlorothiazid) 80 Mg-25 Mg Tablet 1 Ea PO DAILY Yuvafem (Estradiol) 10 Mcg Tablet 10 Mcg VG 2XWEEKLY Sertraline HCl 50 Mg Tablet 50 Mg PO DAILY TAKES ALONG WITH (100MG) TAB Instructions to patient/family Please see electronic discharge instructions given to patient. Problem Qualifiers (1) Hyperlipidemia: Hyperlipidemia type: mixed hyperlipidemia Qualified Codes: E78.2 - Mixed hyperlipidemia (2) Hypertension: Hypertension type: primary hypertension Qualified Codes: I10 - Essential (primary) hypertension (3) Osteoarthritis: Osteoarthritis location: multiple joints Osteoarthritis type: primary Qualified Codes: M15.9 - Polyosteoarthritis, unspecified (4) Obesity: Obesity type: due to excess calories Obesity classification: adult class 1 (BMI 30 - 34.9) Serious obesity comorbidity presence: without serious comorbidity Body mass index: BMI 33.0-33.9 Qualified Codes: E66.09 - Other obesity due to excess calories; Z68.33 - Body mass index [BMI] 33.0-33.9, adult ARON WHEELER MD Jun 13, 2022 09:28
== END 2022-06-13 10:07 | disposition home health service (06) | DRG 641 ==
LOC: EDUNIT# 14:35 → ER 14:36 → UNDOADMIN 17:16 → 4TH 17:16
PROVIDERS: ADMIT Internal Medicine; ATTEND Family Medicine
DX: E86.0 Dehydration (principal); E87.1 Hypo-osmolality and hyponatremia; E87.8 Other disorders of electrolyte and fluid balance, not elsewhere classified; E87.6 Hypokalemia; Z86.16 Personal history of COVID-19; I10 Essential (primary) hypertension; E03.9 Hypothyroidism, unspecified; E78.2 Mixed hyperlipidemia; M79.7 Fibromyalgia; D75.839 Thrombocytosis, unspecified; M19.91 Primary osteoarthritis, unspecified site
CPT/HCPCS: 36415; 70450; 71045; 80048; 80053; 81000; 83690; 83735; 84484; 85007; 85027; 85610; 85730; 86141; 93005; 94640; 94760

== ENCOUNTER 2022-08-30 14:12 | Outpatient (RCR) | payer MEDICARE, OTHER ==
[~2022-08-30 14:12] MED LIST changes: +ACET-2267 PO; +ASCO-262 PO; +CHOL-34 PO; +ESTR10TA4 VG; +LEVO50TA PO; +OXYB10TA29 PO; +POLY1DRO OP; +PRAV20TA3 PO; +SERT-413 PO; +SERT-414 PO; +TELM1TAB PO; +ZINC50TA11 PO
== END 2022-09-03 | disposition home or self-care (01) ==
LOC: CR3 14:12
PROVIDERS: ATTEND Internal Medicine
DX: Z29.8 Encounter for other specified prophylactic measures (principal)

== ENCOUNTER 2022-10-20 13:11 | Outpatient (RCR) | payer MEDICARE, OTHER | END 2022-11-03 | disposition home or self-care (01) | LOC: CR3 13:11 | PROVIDERS: ATTEND Internal Medicine | DX: Z29.8 Encounter for other specified prophylactic measures (principal) ==

== ENCOUNTER 2023-01-01 13:08 | Outpatient (RCR) | payer MEDICARE, OTHER | END 2023-01-04 | disposition home or self-care (01) | LOC: CR3 13:08 | PROVIDERS: ATTEND Internal Medicine | DX: Z29.8 Encounter for other specified prophylactic measures (principal) ==

== ENCOUNTER 2023-02-28 13:16 | Outpatient (RCR) | payer MEDICARE, OTHER | END 2023-03-04 | disposition home or self-care (01) | LOC: CR3 13:16 | PROVIDERS: ATTEND Internal Medicine | DX: Z29.8 Encounter for other specified prophylactic measures (principal) ==

== ENCOUNTER → 2023-03-20 | Outpatient (CLI) | payer MEDICARE, OTHER ==
--- NOTE | 2023-03-20 09:28 | Diagnostic Imaging Report ---
INDICATION: Postmenopausal screening COMPARISON: None FINDINGS: AP Spine L1-L4: [BMD (g/cm2): 0.964] [T-Score: -2.0] [Z-Score: -1.0] [BMD Previous: 1.237] [BMD % Change: -22.1*] LT Hip Neck: [BMD (g/cm2): 0.786] [T-Score: -1.8] [Z-Score: -0.3] LT Hip Total: [BMD (g/cm2):0.856] [T-Score:-1.2] [Z-Score: 0.1] [BMD Previous: 0.964] [BMD % Change: -11.2*] RT Hip Neck: [BMD (g/cm2):0.839] [T-Score:-1.4] [Z-Score:0.1] RT Hip Total: [BMD (g/cm2):0.907] [T-score:-0.8] [Z-Score:0.5] [BMD Previous:1.002] [BMD % Change:-9.5*] *Indicates significant change from prior examination based on 95% confidence level. World Health Organization criteria for BMD interpretation classify patients as Normal (T-score at or above -1.0), Osteopenic (T-score between -1.0 and -2.5) or Osteoporotic (T-score at or below -2.5). LIMITATIONS AND MODIFICATION: None. FRACTURE RISK (FRAX SCORE): The ten year probability of (%): Major Osteoporotic Fracture: [13.1] Hip Fracture: [3.2] IMPRESSION: 1. Osteopenia (Low bone mass). 2. See below National Osteoporosis Foundation guidelines on when to potentially initiate pharmacologic therapy. Based on the National Osteoporosis Foundation Guidelines, pharmacologic treatment should be initiated in any of the following, unless clinical conditions suggest otherwise: * Any patient with prior fragility fracture of the hip or vertebrae. A spine fracture indicates 5X risk for subsequent spine fracture and 2X risk for subsequent hip fracture. * Osteoporosis (T-score <-2.5). * Postmenopausal women and men age 50 and older with low bone mass/osteopenia (T-score between -1.0 and -2.5) by DXA and 10-year major osteoporotic fracture greater than 20% or a 10-year probability of hip fracture greater than 3%. These fracture risks are supplied above in the FRAX score, if applicable. * Clinician judgement and/or patient preferences may indicate treatment for people with 10-year fracture probabilities above or below these levels. Dictated by: Dictated on workstation # [id number]
--- NOTE | 2023-03-20 13:05 | Diagnostic Imaging Report ---
INDICATION: Routine screening. COMPARISON: 05/13/2015. TECHNIQUE: 2D and 3D bilateral screening mammography was performed with CAD. FINDINGS: Scattered fibroglandular densities are identified bilaterally. The parenchymal pattern is stable. There are benign calcifications in both breasts. No mass or malignant-appearing microcalcifications are identified. The axillae are unremarkable. IMPRESSION: No mammographic features suspicious for malignancy are identified. ACR BI-RADS Category 2: Benign findings. Result letter will be mailed to the patient. Note: At least 10% of breast cancer is not imaged by mammography. Dictated by: Dictated on workstation # [id number]
== END ==
LOC: RAD 08:01
PROVIDERS: ATTEND Nurse Practitioner Family
DX: Z12.31 Encounter for screening mammogram for malignant neoplasm of breast (principal); M85.80 Other specified disorders of bone density and structure, unspecified site; Z78.0 Asymptomatic menopausal state
CPT/HCPCS: 77063; 77067; 77080

== ENCOUNTER → 2023-05-04 | Outpatient (RCR) | payer MEDICARE, OTHER | END | disposition home or self-care (01) | LOC: CR3 03-05 11:58 | PROVIDERS: ATTEND Internal Medicine | DX: Z29.8 Encounter for other specified prophylactic measures (principal) ==

== ENCOUNTER → 2023-07-04 | Outpatient (RCR) | payer MEDICARE, OTHER | END | disposition home or self-care (01) | LOC: CR3 05-07 14:47 | PROVIDERS: ATTEND Internal Medicine | DX: Z29.8 Encounter for other specified prophylactic measures (principal) ==

== ENCOUNTER 2023-08-27 13:30 | Outpatient (RCR) | payer MEDICARE, OTHER | END 2023-09-03 | disposition home or self-care (01) | LOC: CR3 13:30 | PROVIDERS: ATTEND Internal Medicine | DX: Z01.89 Encounter for other specified special examinations (principal) ==